=== PATIENT | female | born 1960 | race Caucasian/White ===

== ENCOUNTER 2017-10-19 08:57 | Day surgery (SDC) | payer BC ==
[2017-10-13 10:21] VITALS: BMI 48.7
[~2017-10-19 08:57] MED LIST: DEXAMETHASONE SOD PHOSPHATE 10 MG/ML 1 ML VIAL IV ONE; LACTATED RINGERS 1,000 ML IV SCH; MORPHINE SULFATE 5 MG/ML SYRINGE IV PRN; ONDANSETRON 4 MG/2 ML VIAL IVP ONE; ONDANSETRON 4 MG/2 ML VIAL IVP PRN; ceFAZolin 3 GM in SODIUM CHLORIDE 0.9% 100 ML IVPB ONE
[2017-10-19] MEDS ORDERED: SCOPOLAMINE 1.5MG/72HR PATCH TRANSDERM ONE (09:28)
[2017-10-19] MEDS ORDERED: LIDOCAINE 1% 20 ML VIAL (10MG/ML) FOR IV START INTRADERMA ONE (09:29)
[2017-10-19] MEDS ORDERED: HEPARIN SODIUM,PORCINE 5,000 UNIT/ML 1 ML VIAL SQ ONE (09:36)
[2017-10-19] MEDS ORDERED: PROPOFOL 10 MG/ML 20 ML VIAL IV ONE (09:58)
[2017-10-19] MEDS ORDERED: KETOROLAC 30 MG/ML 1 ML VIAL ONE (09:58)
[2017-10-19] MEDS ORDERED: fentaNYL (PF) 50 MCG/ML 2 ML AMP ONE (09:58)
[2017-10-19] MEDS ORDERED: LIDOCAINE 1% INJ 10MG/ML (20 ML MDV) ONE (09:58)
[2017-10-19] MEDS ORDERED: ROCURONIUM BROMIDE 10 MG/ML 10 ML VIAL IV ONE (09:58)
[2017-10-19] MEDS ORDERED: SUCCINYLCHOLINE CHLORIDE 100 MG/5 ML SYR IV ONE (09:58)
[2017-10-19] MEDS ORDERED: GLYCOPYRROLATE 0.2 MG/ML 2 ML VIAL ONE (09:58)
[2017-10-19] MEDS ORDERED: NEOSTIGMINE 1 MG/ML 10 ML VIAL ONE (09:58)
[2017-10-19] MEDS ORDERED: MIDAZOLAM 2 MG/2 ML VIAL ONE (09:58)
[2017-10-19] MEDS ORDERED: LIDOCAINE 1% INJ 10MG/ML (20 ML MDV) SQ ONE (10:24)
[2017-10-19] MEDS ORDERED: BUPIVACAINE-EPI 0.5%-1:200,000 10 ML VIAL SQ ONE (10:24)
--- NOTE | 2017-10-19 11:19 | P.OP ---
Date of Procedure: 10/19/17 Preoperative Diagnosis: Biliary dyskinesia Postoperative Diagnosis: Same Procedure(s) Performed: Laparoscopic cholecystectomy Anesthesia: SIRENA Surgeon: Obdulio Perez Estimated Blood Loss (ml): 5 Condition: stable Disposition: PACU Indications for Procedure: This a 57-year-old female who was found to have biliary dyskinesia on HIDA scan. She was having pain in her right upper quadrant. She was diagnosed with biliary dyskinesia and laparoscopic cholecystectomy was recommended. Patient stated she understood the risks and benefits and alternatives informed consent was obtained Description of Procedure: Patient was wheeled into the operative suite remained in the supine position prepped and draped in the usual sterile fashion timeout was performed correct patient correct procedure correct site was verified 12 mm incision was made just to the right of the umbilicus using a 12 mm Visiport the abdomen was entered under direct visualization and insufflated no injuries were noted. 3 5 mm ports were placed in the right upper quadrant under direct visualization. The gallbladder was grasped and retracted cephalad. The cystic duct and cystic artery were duly skeletonized the critical view was obtained. The cystic duct and cystic artery were then doubly clipped and ligated. The gallbladder was removed the liver bed using Bovie electrocautery. It was placed in an Endo Catch bag and removed through the periumbilical port site. The liver bed was then suctioned and irrigated until clear. Hemostasis was noted. Using a 0 Vicryl with 8 of a Aubrey-Fernando the periumbilical port site was closed under direct visualization. All ports removed under direct visualization and hemostasis was noted. The abdomen was desufflated the skin was closed with 4-0 Monocryl subcuticular sutures followed by skin glue patient tolerated the procedure well there is no apparent complications Plan - Discharge Summary New Discharge Prescriptions: No Action Cholecalciferol [Vitamin D3] 2,000 unit PO DAILY Levothyroxine Sodium [Synthroid] 75 mcg PO DAILY Discharge Medication List Cholecalciferol [Vitamin D3] 2,000 unit PO DAILY 03/03/16 [History] Levothyroxine Sodium [Synthroid] 75 mcg PO DAILY 10/13/17 [History]
[2017-10-19] MEDS ORDERED: HYDROcodone/APAP 5-325MG 1 EACH TAB PO ONE (12:30)
[2017-10-19 16:32] VITALS: BP 141/69; PULSE 79; RESP 18; TEMP 97.2
== END 2017-10-19 14:20 | disposition home or self-care (01) ==
LOC: OR 08:57
PROVIDERS: ATTEND Student in an Organized Health Care Education/Training Program
DX: K80.12 Calculus of gallbladder with acute and chronic cholecystitis without obstruction (principal); G47.33 Obstructive sleep apnea (adult) (pediatric); K21.9 Gastro-esophageal reflux disease without esophagitis; E07.9 Disorder of thyroid, unspecified; E66.01 Morbid (severe) obesity due to excess calories; Z68.43 Body mass index [BMI] 50.0-59.9, adult; Z88.5 Allergy status to narcotic agent; Z79.899 Other long term (current) drug therapy; Z86.2 Personal history of diseases of the blood and blood-forming organs and certain disorders involving the immune mechanism; Z82.49 Family history of ischemic heart disease and other diseases of the circulatory system; Z83.3 Family history of diabetes mellitus
CPT/HCPCS: 47562; 88304; J2250; J1644; J1100; J2710; J0690; J2405; J2001; J3010; J1885; J0330; J2704

== ENCOUNTER → 2019-06-21 | Outpatient (CLI) | payer BC ==
--- NOTE | 2019-06-21 14:09 | US ---
EXAMINATION TYPE: US venous doppler duplex LE RT DATE OF EXAM: 06/21/2019 1:50 PM COMPARISON: NONE CLINICAL HISTORY: R60.0 Localized edema. SIDE PERFORMED: Right TECHNIQUE: The lower extremity deep venous system is examined utilizing real time linear array sonog danna with graded compression, doppler sonography and color-flow sonography. VESSELS IMAGED: External Iliac Vein (EIV) Common Femoral Vein Deep Femoral Vein Greater Saphenous Vein * Femoral Vein Popliteal Vein Small Saphenous Vein * Proximal Calf Veins (* superficial vessels) Grayscale, color doppler, spectral doppler imaging performed of the deep veins of the right lower ext remity. There is normal flow, compressibility, vascular waveforms. Right Leg: Negative for DVT IMPRESSION: No sonographic evidence of deep venous thrombosis within the right lower extremity.
== END | disposition home or self-care (01) ==
LOC: RADUSWWP 13:25
PROVIDERS: ATTEND Internal Medicine
DX: R60.0 Localized edema (principal)

== ENCOUNTER → 2020-11-30 | Outpatient (CLI) | payer BC ==
[2020-11-30 10:19] LABS: Appearance,Urine Clear (Clear); Bilirubin,Urine Negative (Negative); Blood,Urine Negative (Negative); Color,Urine Yellow; Glucose,Urine (UA) Negative (Negative); Ketones,Urine Negative (Negative); Leukocyte Esterase,Urine Trace (Negative); Mucus,Urine Few /hpf; Nitrite,Urine Negative (Negative); PH, Urine 5.5 (5.0-8.0); Protein,Urine Negative (Negative); RBC,Urine 1 /hpf (0-5); Specific Gravity,Urine 1.025 (1.001-1.035); Squamous Epithelial Cell,Urine 2 /hpf (0-4); Urobilinogen,Urine <2.0 mg/dL (<2.0); WBC,Urine 1 /hpf (0-5)
[2020-11-30 14:41] LABS: Basophils # (A) 0.05 X 10*3/uL (0.00-0.10); Basophils % (A) 0.7 %; Eosinophils # (A) 0.09 X 10*3/uL (0.04-0.35); Eosinophils % (A) 1.3 %; HCT 42.8 % (37.2-46.3); HGB 14.6 g/dL (12.0-15.0); Lymphocytes # (A) 2.01 X 10*3/uL (0.90-5.00); Lymphocytes % (A) 30.1 %; MCH 30.7 pg (27.0-32.0); MCHC 34.1 g/dL (32.0-37.0); MCV 89.9 fL (80.0-97.0); Mean Platelet Volume 11.1 fL (9.5-12.2); Monocytes # (A) 0.47 X 10*3/uL (0.20-1.00); Neutrophils # (A) 4.03 X 10*3/uL (1.80-7.70); Neutrophils % (A) 60.6 %; Platelet Count 225 X 10*3/uL (140-440); RBC 4.76 X 10*6/uL (4.10-5.20); RDW 12.5 % (11.5-14.5); WBC 6.67 X 10*3/uL (4.50-10.00)
[2020-11-30 14:45] LABS: African American GFR (CKD) 92.9 (60.0-200.0); Albumin 4.7 g/dL (3.80-4.90); Albumin/Globulin Ratio 2.24 (1.60-3.17); Anion Gap 8.6 mmol/L (4.00-12.00); BUN/Creat Ratio 22.5 Ratio (12.00-20.00); Calcium 9.3 mg/dL (8.7-10.3); Carbon Dioxide 27.4 mmol/L (21.6-31.8); Globulin 2.1 g/dL (1.6-3.3); Non-African American GFR(CKD) 80.1 (60.0-200.0); Potassium 4.3 mmol/L (3.5-5.5); Total Bilirubin 0.8 mg/dL (0.2-1.2); Total Protein 6.8 g/dL (6.2-8.2)
[2020-11-30 14:46] LABS: Chol/HDL Ratio 2.65; LDL Cholesterol,Calculated 57.2 mg/dL (0.0-131.0); VLDL Calculation 23.8 mg/dL (5.00-40.00)
[2020-11-30 14:53] LABS: T4, Free (Free Thyroxine) 1.1 ng/dL (0.80-1.80)
== END | disposition home or self-care (01) ==
LOC: LABWHC1 08:39
PROVIDERS: ATTEND Internal Medicine
DX: Z00.00 Encounter for general adult medical examination without abnormal findings (principal); E03.9 Hypothyroidism, unspecified; E55.9 Vitamin D deficiency, unspecified
CPT/HCPCS: 36415; 80053; 80061; 81001; 82306; 84439; 84443; 84481; 85025